=== PATIENT | female | born 1950 | race Caucasian/White ===

== ENCOUNTER 2016-05-31 12:00 | Inpatient (IN) | payer MEDICARE, MEDICAID ==
[~2016-05-31] VITALS: Ht 167.6 cm; Wt 93.1 kg
[2016-05-31] VITALS (349 sets, daily range): BP systolic 98–117; BP diastolic 42–89; PULSE 72–89; TEMP 98.4–98.5; O2SAT 82–98
[~2016-05-31 12:00] MED LIST: ALBUTEROL1.25 MG/3 IH; ALDACTONE 25MG25 M1 PO; AMBIEN 10MG10 MG PO; AMITIZA24 MCG PO; ATARAX 25MG25 MG/TAB PO; ATARAX50 MG PO; BENADRYL25 M2 PO; BIOFREEZE 0.2%-1 GE1 TP; BUMEX0.5 MG PO; CALCIUM + D 6001 TA1 PO; CALCIUM 600 PLU1 TAB PO; CARDI-OMEGA1000 MG PO; CARDIZEM120 MG PO; CELEXA40 MG PO; COLACE 100100 MG/CAP PO; COREG 6.256.25 MG/TA PO; COUMADIN 22.5 MG/TAB PO; COUMADIN 2MG2 MG/TAB PO; COUMADIN 5MG5 MG/TAB PO; COUMADIN4 MG PO; COZAAR 50MG50 MG/TAB PO; CRANBERRY425 MG PO; DESYREL 100MG100 MG PO; DITROPAN 5MG TAB5 MG PO; DULCOLAX S10 MG/SUPP RC; FISH OIL1000 MG PO; FLONASE NASAL S16 GM NS; GENTLE LAXATIVE10 MG RC; K-DUR 2020 MEQ PO; KLONOPIN 0.5MG0.5 MG PO; LASIX 40MG TABL40 MG PO; LASIX 80MG TABL80 MG PO; LIORESAL 1010 MG/TAB PO; LOPRESSOR 550 MG/TAB PO; LOTRISONE CREAM15 GM TP; MIRALAX PA17 GM/Dose PO; MUCINEX 60600 MG/TA1 PO; MUCUS RELIEF400 M1 PO; NASAL MOISTURIZ45 ML NS; NEXIUM 40MG40 MG PO; NITROSTAT0.4 MG/TAB SL; NORCO 325 MG-51 TAB PO; NORVASC 10MG10 MG PO; OCEAN NASAL SPR45 ML NS; OMNICEF 300MG300 MG PO; PRAVACHOL 40MG40 MG PO; PRILOSEC 20MG20 MG PO; PROAIR HFA0.09 MG/AC IH; ROCEPHIN VIA1 G/VIAL IJ; RT ADVAIR 228 DISKUS IH; RT ALBUTER2.5 MG/0.5 IH; RT SPIRIVA18 MCG IH; SENNA SOFT15 MG PO; SENOKOT S 50 MG1 TAB PO; TESSALON P100 MG/CAP PO; TUMS500 MG PO; TYLENOL 500MG500 MG PO; TYLENOL EXTRA500 M1 PO; ULTRAM 50MG TAB50 MG PO; ULTRAM ER100 MG PO; VITAMIN C500 MG PO; VTAMINC250TA PO; [UNRECOGNIZED DRUG - OTHER] MM
[2016-05-31] MEDS ORDERED: NORCO 325 MG-7.1 TAB PO (12:33)
[2016-05-31] MEDS ORDERED: DESYREL DIVIDO150 M1 PO (12:37)
[2016-05-31] MEDS ORDERED: COLACE 100100 MG/CAP PO (12:41)
[2016-05-31] MEDS ORDERED: CELEXA 20MG20 MG/TAB PO (12:53)
[2016-05-31] MEDS ORDERED: TESSALON PERLE200 MG PO (12:59)
[2016-05-31] MEDS ORDERED: CARDIZEM CD 24240 MG PO (13:00)
[2016-05-31] MEDS ORDERED: DULERA1 ARO IH (13:04)
[2016-05-31] MEDS ORDERED: ATIVAN 0.50.5 MG/TAB PO (13:04)
[2016-05-31] MEDS ORDERED: MELATONIN5 M1 SL (13:05)
[2016-05-31] MEDS ORDERED: ULORIC40 MG PO (13:14)
[2016-05-31] MEDS ORDERED: RISPERDAL 0.20.25 MG PO (13:16)
[2016-05-31] MEDS ORDERED: BUMEX0.5 MG PO (13:17)
[2016-05-31] MEDS ORDERED: XYZAL5 MG PO (13:17)
[2016-05-31] MEDS ORDERED: PRAVACHOL 40MG40 MG PO (13:18)
[2016-05-31] MEDS ORDERED: NEURONTIN100 MG/CAP PO (13:18)
[2016-05-31] MEDS ORDERED: PULMICORT180 MCG/Ac IH (13:19)
[2016-05-31] MEDS ORDERED: VENTOLIN0.09 MG IH (13:19)
[2016-05-31] MEDS ORDERED: ANORO IH (13:20)
[2016-05-31] MEDS ORDERED: CALCIUM CARB W/1 TA1 PO (13:21)
[2016-05-31] MEDS ORDERED: SENOKOT S 50 MG1 TAB PO (13:22)
[2016-05-31] MEDS ORDERED: FOLIC ACID 11 MG/TA1 PO (13:23)
[2016-05-31] MEDS ORDERED: SYSTANE BALANCE10 M1 OP (13:24)
[2016-05-31] MEDS ORDERED: PYRIDIUM 100MG100 MG PO (13:25)
[2016-05-31] MEDS ORDERED: BIOFREEZE 0.2%-1 GE1 TOP (13:25)
[2016-05-31] MEDS ORDERED: MILK OF MA400 MG/52 (13:25)
[2016-05-31] MEDS ORDERED: TUSSIN DM 10 M118 M1 PO (13:26)
[2016-05-31] MEDS ORDERED: TYLENOL 500MG500 MG PO (13:27)
[2016-05-31] MEDS ORDERED: MEDROL4 MG (13:39)
[2016-05-31] MEDS ORDERED: COUMADIN 3MG3 MG/TAB PO (13:46)
[2016-05-31] MEDS ORDERED: COUMADIN 2MG2 MG/TAB PO (13:47)
[2016-05-31 14:25] LABS: ARTERIAL BLD GAS O2 SATURATION 89.4 % (92-100); ARTERIAL BLD GAS TCO2 CT 22.8; ARTERIAL BLOOD GAS BASE EXCESS -5.1 (-2-2); ARTERIAL BLOOD GAS HCO3 21.4 meq/L (22-26); ARTERIAL BLOOD GAS PO2 62.8 mmHg (80-100); ARTERIAL BLOOD GAS PO2T 62.8 (80-100); OXYHEMOGLOBIN 87.8 %
[2016-05-31 14:26] LABS: ATS? YES
[2016-06-01] VITALS (616 sets, daily range): BP systolic 107–179; BP diastolic 55–105; PULSE 91–136; TEMP 98–100; O2SAT 75–99
[2016-06-01 05:29] LABS: INR 1.4 (0.8-3.0); PROTHROMBIN TIME 15.2 SECONDS (9.7-12.8)
[2016-06-01 05:30] LABS: HEMATOCRIT 48.6 % (37.0-47.0); HEMOGLOBIN 14.1 g/dl (12.5-16.0); MEAN CELL VOLUME 89 fl (80.0-100.0); MEAN CORPUSCULAR HEMOGLOBIN 26 pg (27.0-31.0); MEAN CORPUSCULAR HGB CONC 29 g/dl (33.0-37.0); PLATELET COUNT 155 K/mm3 (130-400); RED BLOOD COUNT 5.46 M/mm3 (4.10-5.30); REDCELL DISTRIBUTION WIDTH-CV 22.9 % (11.5-14.5); WHITE BLOOD COUNT 9.8 K/mm3 (4.8-10.8)
[2016-06-01 05:31] LABS: PARTIAL THROMBOPLASTIN TIME 28.4 SECONDS (26.0-37.0)
[2016-06-01 05:39] LABS: ADJUSTED CALCIUM 9.6 mg/dL (8.4-10.2); ALBUMIN 3.1 gm/dL (3.5-5.0); BILIRUBIN,TOTAL 1.2 mg/dL (0.0-1.0); CALCIUM 8.9 mg/dL (8.4-10.2); CREATININE, serum 1.96 mg/dL (0.52-1.25); POTASSIUM 5.1 mmol/L (3.4-5.0); TOTAL PROTEIN 6.5 gm/dL (6.4-8.2)
[2016-06-01 05:50] LABS: ADD PATHOLOGY DIFF REVIEW NO
[2016-06-01 05:57] LABS: BAND 11 % (0-10); NEUTROPHILS 83 % (42.0-75.2); PLATELET ESTIMATE NORMAL (NORMAL); TOTAL CELLS COUNTED 100
[2016-06-01 05:58] LABS: ANISOCYTOSIS 3+
[2016-06-01 09:39] LABS: ARTERIAL BLOOD GAS PHT 7.33 C (7.35-7.45); ARTERIAL BLOOD GAS PO2T 66.9 (80-100); OXYHEMOGLOBIN 90.3 %
[2016-06-01 09:41] LABS: ARTERIAL BLD GAS TCO2 CT 19.2; ARTERIAL BLOOD GAS BASE EXCESS -6.8 (-2-2); ARTERIAL BLOOD GAS HCO3 18.1 meq/L (22-26); ARTERIAL BLOOD GAS PO2 66.9 mmHg (80-100); ARTERIAL BLOOD GAS pH 7.33 (7.35-7.45)
[2016-06-01 09:42] LABS: ATS? YES
[2016-06-01 14:11] LABS: ACETAMINOPHEN < 10 ug/mL (10-30); SALICYLATE < 1.0 mg/dL
[2016-06-01 18:53] LABS: CALCIUM 8.7 mg/dL (8.4-10.2); CREATININE, serum 1.55 mg/dL (0.52-1.25); POTASSIUM 4.9 mmol/L (3.4-5.0)
[2016-06-01 18:54] LABS: BASO % 0.1 % (0.0-2.0); GRAN # 11.3 (1.4-6.5); GRAN % 93.1 % (42.2-75.2); HEMATOCRIT 46.9 % (37.0-47.0); HEMOGLOBIN 13.6 g/dl (12.5-16.0); LYMPH # 0.5 (1.2-3.4); LYMPH % 3.8 % (20.0-51.0); MEAN CELL VOLUME 88 fl (80.0-100.0); MEAN CORPUSCULAR HEMOGLOBIN 26 pg (27.0-31.0); MEAN CORPUSCULAR HGB CONC 29 g/dl (33.0-37.0); MONO # 0.3 (0.1-0.6); MONO % 2.3 % (1.7-9.3); PLATELET COUNT 140 K/mm3 (130-400); RED BLOOD COUNT 5.31 M/mm3 (4.10-5.30); WHITE BLOOD COUNT 12.1 K/mm3 (4.8-10.8)
[2016-06-02] VITALS (820 sets, daily range): BP systolic 143–179; BP diastolic 72–92; PULSE 72–91; TEMP 96.8–98.2; O2SAT 86–100
[2016-06-02 05:49] LABS: BASO % 0.2 % (0.0-2.0); GRAN # 9.2 (1.4-6.5); GRAN % 91.1 % (42.2-75.2); HEMATOCRIT 49.8 % (37.0-47.0); HEMOGLOBIN 14.4 g/dl (12.5-16.0); LYMPH # 0.5 (1.2-3.4); LYMPH % 5.4 % (20.0-51.0); MEAN CELL VOLUME 89 fl (80.0-100.0); MEAN CORPUSCULAR HEMOGLOBIN 26 pg (27.0-31.0); MEAN CORPUSCULAR HGB CONC 29 g/dl (33.0-37.0); MONO # 0.2 (0.1-0.6); MONO % 2.4 % (1.7-9.3); PLATELET COUNT 118 K/mm3 (130-400); WHITE BLOOD COUNT 10.1 K/mm3 (4.8-10.8)
[2016-06-02 05:59] LABS: CALCIUM 8.6 mg/dL (8.4-10.2); CREATININE, serum 1.29 mg/dL (0.52-1.25); POTASSIUM 4.8 mmol/L (3.4-5.0)
[2016-06-02 12:26] LABS: ARTERIAL BLD GAS O2 SATURATION 94.9 % (92-100); ARTERIAL BLD GAS TCO2 CT 20.5; ARTERIAL BLOOD GAS BASE EXCESS -5.5 (-2-2); ARTERIAL BLOOD GAS HCO3 19.4 meq/L (22-26); ARTERIAL BLOOD GAS PHT 7.35 C (7.35-7.45); ARTERIAL BLOOD GAS PO2 78.9 mmHg (80-100); ARTERIAL BLOOD GAS PO2T 78.9 (80-100); ARTERIAL BLOOD GAS pH 7.35 (7.35-7.45); OXYHEMOGLOBIN 93.4 %
[2016-06-02 12:27] LABS: ATS? YES
[2016-06-02 14:30] LABS: ALBUMIN 3.2 gm/dL (3.5-5.0); BILIRUBIN,DIRECT 0.7 mg/dL (0.0-0.4); TOTAL PROTEIN 6.5 gm/dL (6.4-8.2)
[2016-06-03] VITALS (744 sets, daily range): BP systolic 122–184; BP diastolic 62–102; PULSE 83–110; TEMP 97.5–98.1; O2SAT 86–100
[2016-06-03 05:15] LABS: BASO % 0.1 % (0.0-2.0); GRAN # 9.2 (1.4-6.5); GRAN % 93.2 % (42.2-75.2); HEMATOCRIT 49.4 % (37.0-47.0); HEMOGLOBIN 14.4 g/dl (12.5-16.0); LYMPH # 0.4 (1.2-3.4); LYMPH % 3.6 % (20.0-51.0); MEAN CELL VOLUME 88 fl (80.0-100.0); MEAN CORPUSCULAR HEMOGLOBIN 26 pg (27.0-31.0); MEAN CORPUSCULAR HGB CONC 29 g/dl (33.0-37.0); MONO # 0.2 (0.1-0.6); MONO % 2.3 % (1.7-9.3); PLATELET COUNT 93 K/mm3 (130-400); WHITE BLOOD COUNT 9.9 K/mm3 (4.8-10.8)
[2016-06-03 05:27] LABS: ADJUSTED CALCIUM 7.9 mg/dL (8.4-10.2); ALBUMIN 2.1 gm/dL (3.5-5.0); BILIRUBIN,TOTAL 1.1 mg/dL (0.0-1.0); CALCIUM 6.4 mg/dL (8.4-10.2); CREATININE, serum 0.89 mg/dL (0.52-1.25); POTASSIUM 3.4 mmol/L (3.4-5.0); TOTAL PROTEIN 4.8 gm/dL (6.4-8.2)
[2016-06-04] VITALS (1042 sets, daily range): BP systolic 103–192; BP diastolic 83–104; PULSE 95–100; TEMP 98.3–98.8; O2SAT 87–95
[2016-06-05] VITALS (616 sets, daily range): BP systolic 101–169; BP diastolic 48–106; PULSE 80–105; TEMP 98.1–98.4; O2SAT 60–96
== END 2016-06-05 22:28 | disposition expired | DRG 189 ==
LOC: ICU 12:00
PROVIDERS: Family Medicine; Internal Medicine; Internal Medicine Pulmonary Disease
PROC: 02HV33Z Insertion of Infusion Device into Superior Vena Cava, Percutaneous Approach (ICD-10-PCS; principal; 2016-05-31)
DX: J96.01 Acute respiratory failure with hypoxia (principal); K72.00 Acute and subacute hepatic failure without coma; G93.41 Metabolic encephalopathy; Z51.5 Encounter for palliative care; Z66 Do not resuscitate; I21.4 Non-ST elevation (NSTEMI) myocardial infarction; N17.9 Acute kidney failure, unspecified; I69.854 Hemiplegia and hemiparesis following other cerebrovascular disease affecting left non-dominant side; E87.2 Acidosis; E87.5 Hyperkalemia; I25.10 Atherosclerotic heart disease of native coronary artery without angina pectoris; I10 Essential (primary) hypertension; J44.9 Chronic obstructive pulmonary disease, unspecified; Z95.5 Presence of coronary angioplasty implant and graft; I48.0 Paroxysmal atrial fibrillation; Z87.891 Personal history of nicotine dependence; I27.2 Other secondary pulmonary hypertension
CPT/HCPCS: 90791-AI; 99223-AI; 99231-AI; 99232-AI; 99233-AI; C1751; J0360; J0456; J0696; J1630; J1644; J1940; J2060; J2270; J2920; J3370; J3430; J7030; J7050